=== PATIENT | male | born 1980 | race Two or more races ===

== ENCOUNTER 2022-01-08 10:43 | Inpatient (IN) | payer OTHER ==
[~2022-01-08] VITALS: Ht 175.3 cm; Wt 89.4 kg
[2022-01-08] MEDS ORDERED: MORPHINE SULFATE INJ 2 MG/ml SYRG IV PRN ×2 (13:00→13:15)
[2022-01-08] MEDS ORDERED: cefTRIAXone 1GM/50ML D5W 50 ML IV ONE (13:15)
[2022-01-08] MEDS ORDERED: HYDROcodone-ACET 5/325MG TAB PO PRN (13:15)
[2022-01-08] MEDS ORDERED: ONDANSETRON HCL 4 MG/2 ML VIAL IV PRN ×2 (13:15→14:15)
[2022-01-08] MEDS ORDERED: fentaNYL CITRATE 100 MCG/2 ML VL ONE (13:42)
[2022-01-08] MEDS ORDERED: MIDAZOLAM HCL 2MG/2ML 2ml VIAL (1mg/ml) ONE (13:44)
[2022-01-08 14:15] LABS: Basophils # (auto) 0 10 ^3/uL (0-0.2); Eosinophils # (auto) 0 10 ^3/uL (0-0.8); Eosinophils % (auto) 0.1 % (0.0-7.0); Lymphocytes # (auto) 0.7 10 ^3/uL (0.4-5.4); Monocytes # (auto) 0.4 10 ^3/uL (0-1.3); Red Cell Distribution Width 12.9 % (11.8-14.3)
[2022-01-08] MEDS ORDERED: HYDROmorphone HCL 2 MG/ML VL/or syr IV PRN (14:15)
[2022-01-08 14:20] LABS: Basophils % (auto) 0.5 % (0.0-2.0); Hematocrit 49.4 % (41.0-53.0); Hemoglobin 15.7 g/dL (13.5-17.5); Mean Corpuscular Hemoglobin 25.8 pg (28.0-32.0); Mean Corpuscular Hgb Conc. 31.9 g/dL (32.0-36.0); Mean Corpuscular Volume 80.7 fL (80.0-100.0); Monocytes % (auto) 5.1 % (0.0-12.0); Neutrophils % (auto) 86.3 % (37.0-80.0); Red Blood Cells 6.11 10^6/uL (4.5-5.90); White Blood Cell 8.1 10^3/uL (4.4-10.8)
[2022-01-08 14:25] LABS: Albumin 4.2 g/dL (3.4-5.0); Calcium 9.3 mg/dL (8.5-10.1); Potassium 4.7 mmol/L (3.5-5.1)
[2022-01-08] MEDS ORDERED: LIDOCAINE 2% (LOCAL ANESTH.) PF 5ml SDV ONE (14:25)
[2022-01-08] MEDS ORDERED: PROPOFOL 10 MG/ML 20 ML IV ONE (14:25)
[2022-01-08] MEDS ORDERED: ONDANSETRON HCL 4 MG/2 ML VIAL ONE (14:25)
[2022-01-08 14:30] LABS: BUN/Creatinine Ratio 9.9; Bilirubin, Total 0.6 mg/dL (0.2-1.0); INR 0.99 (0.9-1.15); Partial Thromboplastin Time 26.9 sec (24.6-33.4); Total Protein 7.4 g/dL (6.4-8.2)
[2022-01-08] MEDS: SODIUM CHLORIDE 0.9% 1,000 ML IV SCH (15:34)
[2022-01-08 15:55] VITALS: BP 139/65
[2022-01-08 22:00] VITALS: BP 111/59
[2022-01-08 23:24] LABS: Urine Amorphous Crystal FEW /hpf (None Seen); Urine Bacteria NONE SEEN /hpf (None Seen); Urine Blood 3+ /uL (Negative); Urine Mucus FEW (None Seen); Urine Specific Gravity 1.021 (1.001-1.035); Urine WBC 7 /hpf (0 - 3)
[2022-01-09 05:00] VITALS: BP 123/48
[2022-01-09] MEDS: SODIUM CHLORIDE 0.9% 1,000 ML IV SCH ×3 (06:17→18:59)
[2022-01-09 06:30] LABS: Basophils # (auto) 0 10 ^3/uL (0-0.2); Basophils % (auto) 0.6 % (0.0-2.0); Eosinophils # (auto) 0.1 10 ^3/uL (0-0.8); Lymphocytes # (auto) 1.1 10 ^3/uL (0.4-5.4); White Blood Cell 5.6 10^3/uL (4.4-10.8)
[2022-01-09 06:33] LABS: Eosinophils % (auto) 1.9 % (0.0-7.0); Hematocrit 43.4 % (41.0-53.0); Hemoglobin 14.1 g/dL (13.5-17.5); Lymphocytes % (auto) 19.4 % (10.0-50.0); Mean Corpuscular Hemoglobin 26.2 pg (28.0-32.0); Mean Corpuscular Hgb Conc. 32.4 g/dL (32.0-36.0); Mean Corpuscular Volume 80.8 fL (80.0-100.0); Monocytes # (auto) 0.5 10 ^3/uL (0-1.3); Monocytes % (auto) 8.3 % (0.0-12.0); Neutrophils # (auto) 3.9 10 ^3/uL (1.6-8.6); Neutrophils % (auto) 69.8 % (37.0-80.0); Red Blood Cells 5.37 10^6/uL (4.5-5.90); Red Cell Distribution Width 13.3 % (11.8-14.3)
[2022-01-09 06:52] LABS: Potassium 4.4 mmol/L (3.5-5.1)
[2022-01-09 07:02] LABS: BUN/Creatinine Ratio 12.6; Calcium 8.2 mg/dL (8.5-10.1)
[2022-01-09 08:58] VITALS: BP 132/77
[2022-01-09] MEDS: cefTRIAXone 1GM/50ML D5W 50 ML IV SCH (09:24)
[2022-01-09] MEDS ORDERED: ACETAMINOPHEN 325 MG TAB PO PRN (11:45)
[2022-01-09 12:36] VITALS: BP 126/51
[2022-01-09 17:00] VITALS: BP 126/71
[2022-01-09 22:00] VITALS: BP 125/79
[2022-01-10] MEDS: SODIUM CHLORIDE 0.9% 1,000 ML IV SCH (04:24)
[2022-01-10 05:00] VITALS: BP 128/71
[2022-01-10 06:26] LABS: Basophils # (auto) 0 10 ^3/uL (0-0.2); Eosinophils # (auto) 0.1 10 ^3/uL (0-0.8); Lymphocytes # (auto) 1.1 10 ^3/uL (0.4-5.4); Mean Corpuscular Hemoglobin 26.8 pg (28.0-32.0); Monocytes # (auto) 0.4 10 ^3/uL (0-1.3); Neutrophils # (auto) 2.8 10 ^3/uL (1.6-8.6); Red Cell Distribution Width 12.9 % (11.8-14.3)
[2022-01-10 06:29] LABS: Basophils % (auto) 0.7 % (0.0-2.0); Eosinophils % (auto) 2.3 % (0.0-7.0); Hematocrit 42.2 % (41.0-53.0); Hemoglobin 14.1 g/dL (13.5-17.5); Lymphocytes % (auto) 25.8 % (10.0-50.0); Mean Corpuscular Hgb Conc. 33.4 g/dL (32.0-36.0); Mean Corpuscular Volume 80.1 fL (80.0-100.0); Monocytes % (auto) 9.1 % (0.0-12.0); Neutrophils % (auto) 62.1 % (37.0-80.0); Red Blood Cells 5.27 10^6/uL (4.5-5.90); White Blood Cell 4.5 10^3/uL (4.4-10.8)
[2022-01-10 06:44] LABS: BUN/Creatinine Ratio 11.3; Calcium 8.5 mg/dL (8.5-10.1); Potassium 4.5 mmol/L (3.5-5.1)
[2022-01-10 08:00] VITALS: BP 140/76
[2022-01-10] MEDS: cefTRIAXone 1GM/50ML D5W 50 ML IV SCH (08:37)
[2022-01-10] MEDS ORDERED: CIPR-173 PO (10:06)
[2022-01-10 10:30] VITALS: BP 140/70
== END 2022-01-10 11:30 | disposition home or self-care (01) | DRG 697 ==
LOC: CENTRAL 11:42
PROVIDERS: ADMIT Internal Medicine; ATTEND Internal Medicine
PROC: 0TJB8ZZ Inspection of Bladder, Via Natural or Artificial Opening Endoscopic (ICD-10-PCS; 2022-01-08)
PROC: 0T9B70Z Drainage of Bladder with Drainage Device, Via Natural or Artificial Opening (ICD-10-PCS; principal; 2022-01-08 13:39)
DX: N35.919 Unspecified urethral stricture, male, unspecified site (principal); N17.9 Acute kidney failure, unspecified; N39.0 Urinary tract infection, site not specified
CPT/HCPCS: 36415; 80048; 80053; 81001; 82962; 85025; 85610; 85730; 93005; G0378; J0696; J2001; J2250; J2405; J2704